=== PATIENT | male | born 1975 | race Caucasian/White ===

== ENCOUNTER 2016-06-05 11:34 | Emergency (ER) | payer OTHER ==
[~2016-06-05] VITALS: Ht 177.8 cm; Wt 2.6 kg
[~2016-06-05 11:34] MED LIST: IBUPROFEN800 M1 PO; PERCOCET 5-3251 EACH PO
[2016-06-05 11:42] VITALS: BP 113/78
--- NOTE | 2016-06-05 12:56 | ED UPPER/LOWER EXTREMITY COMPL ---
History of Present Illness General Chief Complaint: Lower Extremity Problems Stated Complaint: LT ANKLE PAIN Source: patient Exam Limitations: no limitations Vital Signs & Intake/Output Vital Signs & Intake/Output Vital Signs Date Time Temp Pulse Resp B/P Pulse O2 O2 Flow FiO2 Ox Delivery Rate 06/05 1142 97.4 104 16 113/78 97 Room Air Allergies Coded Allergies: NO KNOWN ALLERGIES (01/30/16) Reconcile Medications Ketorolac Tromethamine 10 MG TABLET 1 TAB PO TID PRN PAIN RECEIVED IM IN ER Triage Note: PT STATES HE HAS HAD PAIN AND SWELLING ON HIS LEFT ANKLE. PT STATES HE HAD SURGERY ON HIS ANKLE IN JANUARY. PT STATES THE PAIN IN HIS ANKLE SHOOTS UP HIS LEG INTO HIS BUTTOCKS. PT DOES NOT REMEMBER INJURING HIS ANKLE AGAIN. Triage Nurses Notes Reviewed? yes Onset: Gradual Duration: constant Timing: recent history Severity: moderate Severity Numbers: 5 HPI: Patient is a 40-year-old male with a past medical history of 4-5 months ago of a fall which she had a fibular fracture with repair performed by orthopedic Dr. CAGE who presents emergency room same that for the past 10 days patient has noted gradually worsening left medial ankle swelling and pain is made worse with ambulation. Patient denies any specific mechanism of injury however he does state that he is on his feet all the time. Patient has not been taking medications for symptoms. (TAMMY HDZ) Past History Travel History Traveled to [place] past 21 day No Medical History Any Pertinent Medical History? none Cancer(s): NONE Surgical History Surgical History: LEFT ANKLE FRACTURE REPAIR Psychosocial History What is your primary language Citizen [place] Tobacco Use: Current Daily Use Daily Tobacco Use Amount/Type: => 5 Cigarettes daily ETOH Use: occasional use Illicit Drug Use: denies illicit drug use Family History Hx Contributory? No (TAMMY HDZ) Review of Systems Review of Systems Constitutional: Reports: no symptoms. EENTM: Reports: no symptoms. Respiratory: Reports: no symptoms. Cardiovascular: Reports: no symptoms. Gastrointestinal/Abdominal: Reports: no symptoms. Genitourinary: Reports: no symptoms. Musculoskeletal: Reports: see HPI. Skin: Reports: no symptoms. Neurological/Psychological: Reports: no symptoms. Hematologic/Endocrine: Reports: no symptoms. Immunological: Reports: no symptoms. All Other Systems: Reviewed and Negative (TAMMY HDZ) Physical Exam Physical Exam General Appearance: well developed/nourished, no apparent distress Neurologic/Tendon: normal sensation, normal motor functions, normal tendon functions, responds to pain Skin: intact, normal color, warm/dry Comments: Well-developed well-nourished no apparent distress. HEENT: Atraumatic, extraocular motion intact Neck: Supple, no lymphadenopathy Back: Nontender Respiratory: No respiratory distress Extremities: Left knee nontender full active range of motion Left ankle noted well-healing lateral incisional scar with no erythema mild decreased active range of motion noted medial malleoli point tenderness noted and localized swelling. No pedal edema pedal pulse +2 Neuro: Alert and oriented x3 Psych: Mood affect normal, normal memory normal judgment. (TAMMY HDZ) Progress Differential Diagnosis: arterial insufficiency, compartment syndrome, contusion, dislocation, DVT, fracture, gout, septic arthritis, sprain, tendon injury Plan of Care: Current Medications Sig/Pastora Start time Last Medication Dose Stop Time Status Admin Ketorolac 30 MG ONCE ONE 06/05 1330 UNVr Tromethamine 06/05 1331 (Toradol) No concerns of osseous injury or hardware failure on x-ray. Patient has no concerns of DVT or cellulitis. Bairon wrap was placed to left ankle. Post neurovascular was intact. Patient normal steady gait and discharged was strongly advised to follow-up with orthopedic doctor on Thursday if symptoms continue (TAMMY HDZ) Diagnostic Imaging: Viewed by Me: Radiology Read. Radiology Impression: no fracture Comments: PATIENT: WICHO TRAN JR PRESENT AGE: 40 PATIENT ACCOUNT NO: [id number] : 75 LOCATION: [facility] ORDERING PHYSICIAN: CHRISTIANO BIRCH DO (TBS) SERVICE DATE: 06/05/16 EXAM TYPE: RAD - XRY-ANKLE 3 OR MORE VIEWS L EXAMINATION: XR ANKLE, LEFT CLINICAL INFORMATION: Pain and swelling. Evaluate for fracture. COMPARISON: 01/30/2016 and 02/06/2016 TECHNIQUE: AP, lateral, and mortise views of the left ankle. FINDINGS: There is mild soft tissue swelling of the ankle without osseous erosion or periostitis. Bones have normal alignment. The lateral fibular fixation plate and screws are in their expected positions. There is an interfragmentary screw of the distal fibular metaphysis, as well. There are surgical changes of tightrope fixation of the syndesmosis and the endobuttons are in satisfactory position. The talar dome is well centered in the mortise. There is some residual fracture lucency in the distal fibular diaphysis, but the distal portion of the spiral fracture appears to be appropriately healing and no new fractures are identified. The minimally displaced posterior malleolar fragment appears to be healing to the underlying bone. There is a small posterior calcaneal enthesophyte. IMPRESSION: No new osseous injuries at the left ankle compared to the prior exams of 01/30/2016 and 02/06/2016. There is residual fracture lucency along the proximal aspect of the spiral fracture of the distal fibular metadiaphysis. The fixation hardware is intact. (TAMMY HDZ) Departure Departure Disposition: HOME OR SELF CARE Condition: Stable Clinical Impression Primary Impression: Ankle pain, left Referrals: ISABEL TRINIDAD,FRANCESCO Kwan (PCP/Family) NILES TRINIDAD,ANNETTE Gurrola Additional Instructions: As discussed begin to elevate the foot for swelling. Begin ice the area directly 20 minutes every 2 hours. Begin the prescription of ketorolac for pain and inflammation. Begin using the Bairon wrap for swelling. If symptoms worsen return to emergency. If no better on Thursday follow-up with your established orthopedic doctor. Prescriptions waiting at [facility] pharmacy Departure Forms: Customer Survey General Discharge Information Prescriptions: Current Visit Scripts Ketorolac Tromethamine 1 TAB PO TID PRN PAIN #15 TAB RECEIVED IM IN ER (TAMMY HDZ) PA/SHOT BAGGER Co-Sign Statement Statement: ED Attending supervision documentation- [X] I saw and evaluated the patient. I have also reviewed all the pertinent lab results and diagnostic results. I agree with the findings and the plan of care as documented in the PA's/SHOT BAGGER's documentation. [X] I have reviewed the ED Record and agree with the PA's/SHOT BAGGER's documentation. [] Additions or exceptions (if any) to the PAs/SHOT BAGGER's note and plan are summarized below: [] (CINDY TRINIDAD,STARLA Jordan)
[2016-06-05] MEDS ORDERED: KETOROLAC TROME10 M1 PO (13:27)
== END 2016-06-05 13:40 ==
LOC: ERH 11:34
DX: M25.572 Pain in left ankle and joints of left foot (principal)
CPT/HCPCS: 73610-LT; 96372; J1885